=== PATIENT | male | born 1980 | race Two or more races ===

== ENCOUNTER 2019-11-08 08:30 | Outpatient (CLI) | payer SELFPAY | END 2019-11-08 23:59 | disposition home or self-care (01) | LOC: WOU 08:30 | PROVIDERS: ATTEND Podiatrist Foot & Ankle Surgery | DX: I87.2 Venous insufficiency (chronic) (peripheral) (principal); L97.222 Non-pressure chronic ulcer of left calf with fat layer exposed; L97.212 Non-pressure chronic ulcer of right calf with fat layer exposed; L03.116 Cellulitis of left lower limb; L03.115 Cellulitis of right lower limb; I89.0 Lymphedema, not elsewhere classified; G90.523 Complex regional pain syndrome I of lower limb, bilateral; Z79.899 Other long term (current) drug therapy | CPT/HCPCS: G0463 ==